=== PATIENT | female | born 1970 | race Asian ===

== ENCOUNTER → 2016-02-27 | Outpatient (CLI) | payer BC ==
--- NOTE | 2016-02-27 09:40 | US ---
Sonography Limited To The Right Upper Quadrant Of The Abdomen CLINICAL HISTORY: 45-year-old female with chronic hepatitis B. ICD 10 Diagnostic Code: R76.8. TECHNIQUE: A curvilinear 5 MHz transducer was used to sonographically evaluate the right upper quadra nt of the abdomen. Color Doppler was used. COMPARISON STUDY: None. FINDINGS: The pancreatic contour is normal. The abdominal aorta is normal in size and tapers normally . The visualized IVC is normal in caliber. The hepatic vein trifurcation is normal. The main portal v ein is patent. The liver is normal in size, measuring 16.3 cm along the right midaxillary line. In th e right hepatic lobe, there are couple of small echogenic lesions measuring 4 x 5 x 4 mm and 10 x 10 x 10 mm. While these may represent benign cavernous hemangiomas, given the patient's history of chron ic hepatitis B, a multiphasic contrast enhanced CT or MR imaging is recommended for further character ization. There is no intra or extrahepatic bile duct dilatation. The common bile duct measures 3.6 m m. The gallbladder is moderately distended, and there is no evidence of cholelithiasis, sludge, polyp , wall thickening, pericholecystic fluid, or sonographic Davidson sign. The gallbladder wall thickness is 1.4 mm The right kidney is normal in size shape and contour, with normal renal cortical thickness and no focal renal mass or hydronephrosis. It measures 11.1 x 4.2 x 4.8 cm. The right renal cortex me asures 1.0 cm. There is no ascites or right pleural effusion. IMPRESSION: There are a couple of echogenic lesions seen in the right hepatic lobe, likely representi ng benign cavernous hemangiomas; however, confirmation with multiphasic contrast-enhanced CT or MR im aging is recommended.
== END ==
LOC: BMCIMAGING 07:33
PROVIDERS: ATTEND Physician Assistant
DX: K76.89 Other specified diseases of liver (principal); B18.1 Chronic viral hepatitis B without delta-agent

== ENCOUNTER → 2016-04-05 | Outpatient (CLI) | payer BC ==
[~2016-04-05] MED LIST: GADOBUTROL 10 ML VIAL IVP ONE
== END ==
LOC: FIMAGING 07:11
PROVIDERS: ATTEND Physician Assistant
DX: D18.03 Hemangioma of intra-abdominal structures (principal)
CPT/HCPCS: A9585

== ENCOUNTER → 2016-11-07 | Outpatient (CLI) | payer BC | LOC: FIMAGING 07:19 | PROVIDERS: ATTEND Physician Assistant | DX: D18.09 Hemangioma of other sites (principal); B16.1 Acute hepatitis B with delta-agent without hepatic coma ==